=== PATIENT | male | born 1960 | race Caucasian/White ===

== ENCOUNTER 2023-02-19 15:33 | Emergency (ER) | payer OTHER, SELFPAY ==
[2023-02-19] VITALS (13 sets, daily range): BP systolic 106–167; BP diastolic 68–83; PULSE 60–85; RESP 12–24; TEMP 36.7; O2SAT 98–100; BMI 25.0
--- NOTE | 2023-02-19 15:48 | DI.RAD.S_ITS ---
PROCEDURE: XR CHEST 1V INDICATIONS: chest pain TECHNIQUE: One view of the chest was acquired. COMPARISON: None. FINDINGS: Surgical changes and devices: None. Lungs and pleura: Lungs are clear. No pleural effusions or pneumothorax. Mediastinum: Mediastinal contours appear normal. Heart size is normal. Bones and chest wall: No suspicious bony lesions. Overlying soft tissues appear unremarkable. IMPRESSION: No acute cardiopulmonary process. Dictated by: Mckinley Vizcaino M.D. on 02/19/2023 at 16:23 Approved by: Mckinley Vizcaino M.D. on 02/19/2023 at 16:23
--- NOTE | 2023-02-19 15:52 | PC.NURSE ---
Patient declined IV start, requested draw only
[2023-02-19 15:59] LABS: Add Manual Diff / Slide Review NO; Basophils Absolute Auto 0 /uL (0-100); Basophils Percent Auto 0.4 % (0-2); Eosinophils Absolute Auto 100 /uL (0-450); Eosinophils Percent Auto 0.8 % (2-4); Hemoglobin 15.2 g/dL (13.5-17.5); Lymphocytes Absolute Auto 1800 /uL (1100-4500); Lymphocytes Percent Auto 27.3 % (25-40); Mean Corpuscular HGB Conc 34.4 % (30-36); Mean Corpuscular Hemoglobin 32.6 PG (26-34); Mean Corpuscular Volume 94.5 fL (80-100); Monocytes Absolute Auto 400 /uL (0-900); Monocytes Percent Auto 6.5 % (3-14); Neutrophils Absolute Auto 4300 /uL (1500-7000); Platelet Count 199 X10^3/uL (150-400); Red Blood Cell Count 4.65 X10^6/uL (4.5-5.9); Red Cell Distribution Width 13.5 % (11.6-14.8); White Blood Cell Count 6.6 X10^3/uL (4.5-11.0)
[2023-02-19 16:11] LABS: INR 1.1 (0.9-1.3)
[2023-02-19 16:14] LABS: PTT Partial Thromboplastin Tim 28 SECONDS (26-36)
[2023-02-19 16:15] LABS: Alanine Aminotransferase 29 IU/L (<50); Albumin 4.4 g/dL (3.5-5.0); Albumin Globulin Ratio 1.3 (1.0-2.8); Alkaline Phosphatase 79 U/L (38-126); Aspartate Aminotransferase 36 IU/L (17-59); BUN Creatinine Ratio 16.8 (6-22); Bilirubin Total 0.8 mg/dL (0.2-1.3); Blood Urea Nitrogen 16 mg/dL (9-20); Calcium 9.5 mg/dL (8.4-10.2); Carbon Dioxide 25 mmol/L (22-32); Chloride 104 mmol/L (98-107); Creatine Kinase 164 U/L (55-170); Estimated Glomerular Filt Rate > 60 mL/min (>60); Globulin 3.3 g/dL (1.7-4.1); Glucose 114 mg/dL (80-110); HEMOLYSIS < 15 (0-50); Lipase 57 U/L (23-300); Magnesium 2.1 mg/dL (1.6-2.3); Sodium 138 mmol/L (137-145); Total Protein 7.7 g/dL (6.3-8.2)
[2023-02-19 16:26] LABS: Troponin I < 0.012 ng/mL (0.01-0.034)
--- NOTE | 2023-02-19 18:08 | ED.ARRPALP ---
HPI - Arrhythmia/Palpitations General Chief Complaint: Arrhythmia/Palpitations Stated Complaint: states a fib Time Seen by Provider: 02/19/23 18:08 Source: patient Mode of arrival: Ambulatory History of Present Illness HPI narrative: 63-year-old male nonsmoker without chronic medical history presents at the request of his primary care office for evaluation of an irregular heartbeat for the past few months. He states that he recently found out both of his parents have atrial fibrillation and thought maybe he was caring the same diagnosis. He reached out to his primary care office and was directed here for evaluation. He states maybe he has been a bit fatigued for many months but denies any specific complaints and states that he largely feels well and does not think he needs to be here. He is not dizzy nor weak or lightheaded. He denies chest pain or shortness of breath. He denies nausea, vomiting or diarrhea. He denies the use of any other prescription medications, no dietary change, no recent travel, injury or hospitalization. Related Data Allergies Allergy/AdvReac Type Severity Reaction Status Date / Time No Known Drug Allergies Allergy Verified 02/19/23 15:44 Review of Systems Review of Systems Narrative: GENERAL: Denies chills, fatigue, malaise, fever, sweats. HEENT: Denies sinus pain, ear pain, sore throat, difficulty swallowing, dizziness. RESPIRATORY: Denies dyspnea, cough, wheezing, hemoptysis, sputum. CARDIOVASCULAR: See HPI GASTROINTESTINAL: Denies nausea, vomiting, abdominal pain, diarrhea, constipation, melena. : Denies dysuria, frequency, incontinence, hematuria, urinary retention. MUSCULOSKELETAL: denies weakness, joint pain, or bony pain SKIN: Denies rash, skin lesions, or other NEUROLOGIC: Denies weakness, headache, numbness, change in speech, confusion, seizures, incoordination. PSYCHIATRIC: No concerning psychosocial issues. 12 point review of systems is negative except for those stated above Patient History Social History Smoking Status: Never smoker Smoking Status: Never smoker alcohol intake frequency: 0-2 drinks per day Substance Use Type: does not use Exam Narrative Exam Narrative: GENERAL: [63] year old patient appears stated age. Well-developed patient, in mild distress. HEAD: Atraumatic. Normocephalic. EYES: Pupils equal round and reactive. Extraocular motions intact. No scleral icterus. No injection or drainage. ENT: Nose without bleeding, purulent drainage. Throat without erythema, tonsillar hypertrophy or exudate. Airway patent. NECK: Trachea midline. Non tender CARDIOVASCULAR: Irregular rate and rhythm rhythm without murmurs, gallops, or rubs. RESPIRATORY: Clear to auscultation. Breath sounds equal bilaterally. No wheezes, rales, or rhonchi. GASTROINTESTINAL: Abdomen soft, non-tender, nondistended. EXTREMITIES: No edema or joint tenderness. BACK: Nontender without deformity or crepitance. No flank tenderness. NEURO: AOx3. SKIN: No rash or erythema of visible areas Initial Vital Signs Initial Vital Signs: Vital Signs Temperature 98.1 F 02/19/23 15:44 Pulse Rate 85 02/19/23 15:44 Respiratory Rate 16 02/19/23 15:44 Blood Pressure 126/71 02/19/23 15:44 Pulse Oximetry 98 02/19/23 15:44 Oxygen Delivery Method Room Air 02/19/23 15:44 Scores CHADS-VASc Congestive heart failure: no Hypertension: no Age 75 years or older: no Diabetes mellitus: no Stroke, TIA, or TE: no Vascular disease: no Age 65 to 74 years: no Sex category (female): Male CHADS-VASc Score: 0 Course Orders Ordered: ED Orders 02/19/23 15:45 Complete Blood Count AUTO DIFF Stat Comprehensive Metabolic Panel Stat Lipase Stat Magnesium Stat PTT Partial Thromboplastin Jamie Stat Prothrombin Time INR Stat Troponin & CK Cardiac Panel Stat 02/19/23 15:48 XR chest 1V Stat EKG-12 Lead Stat Consultations Consultation #1: Discussed with on-call Cardiology (Lizz). We discussed patient's history and physical exam, EKG demonstrated rate controlled atrial fibrillation, relative lack of symptoms, stable labs. Chads Vasc etc. we sure the opinion that patient is clearly not a candidate for cardioversion. Patient is not a candidate for anticoagulation and given his rate does not need any medications at this time. Appropriate for discharge, requests PCP be contacted to put in referral to cardiology clinic Vital Signs Vital signs: Vital Signs - 8 hr 02/19/23 17:45 02/19/23 18:19 02/19/23 18:20 Pulse Rate 69 70 Respiratory Rate 14 13 Blood Pressure 114/70 110/68 Pulse Oximetry 98 99 Oxygen Delivery Method Room Air 02/19/23 18:20 02/19/23 18:21 02/19/23 18:30 Pulse Rate 70 62 64 Respiratory Rate 24 12 23 Blood Pressure 110/68 Pulse Oximetry 99 99 98 Oxygen Delivery Method Room Air 02/19/23 19:00 02/19/23 19:00 02/19/23 19:20 Pulse Rate 60 Respiratory Rate 12 Blood Pressure 118/70 106/76 Pulse Oximetry 98 Oxygen Delivery Method 02/19/23 19:20 02/19/23 19:30 02/19/23 19:41 Pulse Rate 72 67 Respiratory Rate 13 14 Blood Pressure 167/78 H Pulse Oximetry 99 98 Oxygen Delivery Method 02/19/23 19:41 02/19/23 20:00 02/19/23 20:00 Pulse Rate 70 69 Respiratory Rate 13 12 Blood Pressure 130/74 Pulse Oximetry 98 99 Oxygen Delivery Method 02/19/23 20:20 02/19/23 20:20 02/19/23 20:30 Pulse Rate 65 65 Respiratory Rate 18 15 Blood Pressure 125/83 Pulse Oximetry 100 99 Oxygen Delivery Method MDM - Arrhythmia/Palpitations Lab Data 02/19/23 15:45 02/19/23 15:45 Labs: Lab Results 02/19/23 Range/Units 15:45 WBC 6.6 (4.5-11.0) X10^3/uL RBC 4.65 (4.5-5.9) X10^6/uL Hgb 15.2 (13.5-17.5) g/dL Hct 44.0 (41-53) % MCV 94.5 (80-100) fL MCH 32.6 (26-34) PG MCHC 34.4 (30-36) % RDW 13.5 (11.6-14.8) % Plt Count 199 (150-400) X10^3/uL Neut % (Auto) 65.0 (50-75) % Lymph % (Auto) 27.3 (25-40) % [place] % (Auto) 6.5 (3-14) % Eos % (Auto) 0.8 L (2-4) % Baso % (Auto) 0.4 (0-2) % Neut # (Auto) 4300 (0903-5631) /uL Lymph # (Auto) 1800 (1586-5291) /uL [place] # (Auto) 400 (0-900) /uL Eos # (Auto) 100 (0-450) /uL Baso # (Auto) 0 (0-100) /uL PT 13.0 H (10.1-12.7) SECONDS INR 1.1 (0.9-1.3) APTT 28 (26-36) SECONDS Sodium 138 (137-145) mmol/L Potassium 4.0 (3.4-5.1) mmol/L Chloride 104 (98-107) mmol/L Carbon Dioxide 25 (22-32) mmol/L BUN 16 (9-20) mg/dL Creatinine 0.95 (0.66-1.25) mg/dL Estimated GFR > 60 (>60) mL/min BUN/Creatinine Ratio 16.8 (6-22) Glucose 114 H (80-110) mg/dL Calcium 9.5 (8.4-10.2) mg/dL Magnesium 2.1 (1.6-2.3) mg/dL Total Bilirubin 0.8 (0.2-1.3) mg/dL AST 36 (17-59) IU/L ALT 29 (<50) IU/L Alkaline Phosphatase 79 (38-126) U/L Total Creatine Kinase 164 (55-170) U/L Troponin I < 0.012 (0.01-0.034) ng/mL Total Protein 7.7 (6.3-8.2) g/dL Albumin 4.4 (3.5-5.0) g/dL Globulin 3.3 (1.7-4.1) g/dL Albumin/Globulin Ratio 1.3 (1.0-2.8) Lipase 57 (23-300) U/L [facility] Narrative Medical decision making narrative: [63] year old patient presents with irregular heart rhythm for many months Multiple etiologies for patient's symptoms considered including, but not limited to: [AFib versus a flutter versus PVCs versus other] Prior Charts reviewed in our EMR Primary Historian: patient Labs reviewed and interpreted by myself: No significant abnormalities requiring specific intervention Imaging reviewed: Chest x-ray without acute process EKG: Atrial fibrillation in the 80s, no other ectopy or signs of ischemia Consultations: Discussed with Cardiology, see details above Patient's symptoms improved over duration of stay with above-stated therapies. Findings and discharge diagnosis discussed with patient/family followed by verbalization of understanding Return precautions discussed with patient/family whom verbalize understanding of diagnosis and plan Discharge Plan Departure Patient Disposition: Home Clinical Impression: Atrial fibrillation Instructions: DI for Atrial Fibrillation Activity Restrictions/Additional Instructions: *You have been diagnosed with [newly discovered atrial fibrillation. Thankfully your largely asymptomatic, your rate is well controlled and your labs are normal. I discussed with our on-call circulation tender who agrees that your appropriate for discharge and your risk is low so there is no indication to initiate medications at this time.] *What to do: *Please continue to take your regular medications as directed. [ ] New medication prescriptions sent to your pharmacy: [ ] [ ] New medication written as a paper prescription [ ] No new medications given *Please follow up with your primary care provider in 2-3 days, call for an appointment. Let them know you were seen in the Emergency Department and that we ask that you be seen in follow up. We will electronically transmit a record of today's note if your PCP is in our system. Dr. Zamudio (Cardiology) request that you ask your primary care provider to submit a referral to their office so they can perform the necessary workup as an outpatient *Return to Emergency Department if you should have any new, worsening or concerning symptoms, such as [fever greater than 101 F, shaking chills, worsening pain, persistent vomiting or other bothersome symptoms] Referrals: Hoang Amin MD [Primary Care Provider] - Yamilex Zamudio MD [Physician] - Stand Alone Forms: Patient Portal/API
== END 2023-02-19 20:55 | disposition home or self-care (01) ==
PROVIDERS: Emergency Medicine; Emergency Provider Emergency Medicine; PCP Family Medicine Sports Medicine
DX: I48.91 Unspecified atrial fibrillation (principal); R07.9 Chest pain, unspecified
CPT/HCPCS: 36415; 71045; 80053; 82550; 83690; 83735; 84484; 85025; 85610; 85730; 93005; 99284

== ENCOUNTER → 2023-03-13 07:33 | Outpatient (CLI) | payer OTHER, SELFPAY ==
[2023-03-13 08:28] LABS: Cholesterol 225 mg/dL (140-199); HDL Cholesterol 70 mg/dL (40-60); LDL Cholesterol Calculated 138 mg/dL (<100); Triglycerides 86 mg/dL (35-150)
== END ==
PROVIDERS: PCP Family Medicine Sports Medicine; Referring Provider Internal Medicine Cardiovascular Disease; Visit Provider Internal Medicine Cardiovascular Disease
DX: Z00.00 Encounter for general adult medical examination without abnormal findings (principal)
CPT/HCPCS: 80061

== ENCOUNTER → 2024-04-27 09:01 | Outpatient (CLI) | payer OTHER, SELFPAY ==
[2024-04-27 09:53] LABS: Cholesterol 232 mg/dL (140-199); HDL Cholesterol 70 mg/dL (40-60); LDL Cholesterol Calculated 137 mg/dL (<100); Triglycerides 127 mg/dL (35-150)
== END ==
PROVIDERS: PCP Family Medicine Sports Medicine; Referring Provider Internal Medicine Cardiovascular Disease; Visit Provider Internal Medicine Cardiovascular Disease
DX: E78.5 Hyperlipidemia, unspecified (principal)
CPT/HCPCS: 36415; 80061

== ENCOUNTER → 2025-04-20 08:31 | Outpatient (CLI) | payer OTHER, SELFPAY ==
[2025-04-20 09:51] LABS: Cholesterol 197 mg/dL (140-199); HDL Cholesterol 74 mg/dL (40-60); Triglycerides 91 mg/dL (35-150)
== END ==
PROVIDERS: PCP Family Medicine Sports Medicine; Visit Provider Internal Medicine Cardiovascular Disease
DX: E78.5 Hyperlipidemia, unspecified (principal)
CPT/HCPCS: 36415; 80061